=== PATIENT | female | born 1965 | race African-American/Black ===

== ENCOUNTER 2023-08-21 18:19 | Inpatient (IN) | payer OTHER, MEDICAID ==
[~2023-08-21] VITALS: Ht 160 cm; Wt 112.5 kg
[2023-08-21 18:42] LABS: Basophils # (auto) 0.1 10 ^3/uL (0-0.2); Basophils % (auto) 1.9 % (0.0-2.0); Eosinophils # (auto) 0.2 10 ^3/uL (0-0.8); Eosinophils % (auto) 2.8 % (0.0-7.0); Hematocrit 37.8 % (36.0-46.0); Hemoglobin 12.3 g/dL (12.2-16.2); Lymphocytes # (auto) 2.3 10 ^3/uL (0.4-5.4); Mean Corpuscular Hemoglobin 28.8 pg (28.0-32.0); Mean Corpuscular Hgb Conc. 32.5 g/dL (32.0-36.0); Mean Corpuscular Volume 88.4 fL (80.0-100.0); Monocytes # (auto) 0.7 10 ^3/uL (0-1.3); Monocytes % (auto) 10.5 % (0.0-12.0); Neutrophils # (auto) 3.5 10 ^3/uL (1.6-8.6); Neutrophils % (auto) 50.8 % (37.0-80.0); Nucleated Red Blood Cells % 0.2 %; Red Blood Cells 4.28 10^6/uL (4.0-5.20); Red Cell Distribution Width 16.6 % (11.8-14.3); White Blood Cell 6.9 10^3/uL (4.4-10.8)
[2023-08-21 18:58] LABS: Alanine Aminotransferase 16 U/L (7-40); Albumin 4.6 g/dL (3.2-4.8); Alkaline Phosphatase 98 U/L (46-116); Anion Gap 6 (5-15); Aspartate Aminotransferase 17 U/L (13-40); BUN/Creatinine Ratio 12.9 (10.0-20.0); Bilirubin, Total 0.3 mg/dL (0.2-1.0); Blood Urea Nitrogen 13 mg/dL (9-23); Calcium 10.1 mg/dL (8.5-10.1); Carbon Dioxide 26 mmol/L (20-30); Chloride 108 mmol/L (98-107); Glucose 95 mg/dL (74-106); Potassium 4.1 mmol/L (3.5-5.1); Sodium 140 mmol/L (136-145); Total Protein 7.6 g/dL (5.7-8.2)
[2023-08-21] MEDS ORDERED: TEMAZEPAM 15 MG CAP PO PRN (22:15)
[2023-08-21] MEDS: ASPirin 325 MG TAB PO ONE (23:37)
[2023-08-21] MEDS: NITROGLYCERIN 0.4 MG SL TAB SL PRN (23:44)
[2023-08-22 02:35] VITALS: O2SAT 98
[2023-08-22] MEDS: ACETAMINOPHEN 325 MG TAB PO PRN (03:27)
[2023-08-22] MEDS: MORPHINE SULFATE INJ 2 MG/ml SYRG IV PRN (03:46)
[2023-08-22] MEDS: ONDANSETRON HCL 4 MG/2 ML VIAL IV PRN (03:49)
[2023-08-22 05:28] LABS: Anion Gap 8 (5-15); Carbon Dioxide 24 mmol/L (20-30); Chloride 109 mmol/L (98-107); Potassium 3.9 mmol/L (3.5-5.1); Sodium 141 mmol/L (136-145)
[2023-08-22 05:29] LABS: Calcium 9.9 mg/dL (8.7-10.4)
[2023-08-22 05:34] LABS: BUN/Creatinine Ratio 11.3 (10.0-20.0); Blood Urea Nitrogen 11 mg/dL (9-23); Glucose 127 mg/dL (74-106)
[2023-08-22 07:47] VITALS: PULSE 96; RESP 22; O2SAT 97
[2023-08-22] MEDS: FUROSEMIDE 40 MG TAB PO SCH (10:00)
[2023-08-22] MEDS: CARVEDILOL 3.125 MG TAB PO SCH (10:00)
[2023-08-22] MEDS: NIFEdipine ER 30 MG TAB PO SCH (10:00)
[2023-08-22] MEDS: ASPirin 81 mg TAB PO SCH (10:00)
[2023-08-22] MEDS: APIXABAN 5 MG TAB PO SCH (10:24)
[2023-08-22] MEDS: PREGABALIN CAPSULE 75 MG CAP PO SCH (10:24)
[2023-08-22] MEDS: GABAPENTIN 400 MG CAP PO SCH (10:24)
[2023-08-22] MEDS: VENLAFAXINE HCL 37.5MG TABLET PO SCH (10:34)
[2023-08-22] MEDS: ADENOSINE 91 MG in GIVE UN-DILUTED 0 ML IV ONE (11:59)
[2023-08-22 19:00] VITALS: BP 156/84; PULSE 96; RESP 20; TEMP 98.3; O2SAT 99
[2023-08-22 20:00] VITALS: PULSE 87; PULSE 93; RESP 18; O2SAT 97
[2023-08-22 21:00] VITALS: BP 151/87; PULSE 101; RESP 19; TEMP 98.4; O2SAT 100
[2023-08-22] MEDS: ATORVASTATIN 20 MG TAB PO SCH (21:56)
[2023-08-23] VITALS (8 sets, daily range): BP systolic 107–144; BP diastolic 69–93; PULSE 88–103; RESP 16–20; TEMP 97.9–98.6; O2SAT 96–99
[2023-08-23] MEDS ORDERED: DICL1GEL59 TOP (14:12)
[2023-08-23] MEDS ORDERED: OMEP20TA PO (14:12)
[2023-08-23] MEDS ORDERED: TIZA4TAB9 PO (14:12)
[2023-08-23] MEDS ORDERED: NIFE1TAB31 PO (14:12)
[2023-08-23] MEDS ORDERED: METH-1182 PO (14:12)
[2023-08-23] MEDS ORDERED: ERGO500086 PO (14:12)
[2023-08-23] MEDS ORDERED: OXYC325T14 PO (14:12)
[2023-08-23] MEDS ORDERED: ALPR0.5T7 PO (14:12)
[2023-08-23] MEDS ORDERED: FURO40TA4 PO (14:12)
[2023-08-23] MEDS ORDERED: CARV3.1240 PO (14:12)
[2023-08-23] MEDS ORDERED: GABA-339 PO (14:12)
[2023-08-23] MEDS ORDERED: CYCL-839 PO (14:12)
[2023-08-23] MEDS ORDERED: PREG150C PO (14:12)
[2023-08-23] MEDS ORDERED: AMIT-118 PO (14:12)
[2023-08-23] MEDS ORDERED: DOCU-94 PO (14:12)
[2023-08-23] MEDS ORDERED: APIX5TAB PO (14:12)
[2023-08-23] MEDS ORDERED: VENL75CA78 PO (14:12)
[2023-08-23] MEDS ORDERED: ROSU10TA16 PO (14:12)
[2023-08-23] MEDS ORDERED: CEL100T PO (14:12)
[2023-08-24] VITALS (8 sets, daily range): BP systolic 101–139; BP diastolic 68–85; PULSE 87–104; RESP 14–19; TEMP 97.9–98.3; O2SAT 94–100
[2023-08-24] MEDS: HYDROcodone-ACET 5/325MG TAB PO PRN (16:00)
[2023-08-24] MEDS: MORPHINE SULFATE INJ 2 MG/ml SYRG IV PRN (22:55)
[2023-08-25 04:08] VITALS: BP 116/67; PULSE 76; RESP 20; TEMP 98.6; O2SAT 95
[2023-08-25 08:00] VITALS: BP 118/68; PULSE 88; PULSE 93; RESP 18; TEMP 98.7; O2SAT 95
[2023-08-25 08:15] VITALS: PULSE 93; RESP 18; O2SAT 95
[2023-08-25 12:00] VITALS: BP 103/80; PULSE 88; RESP 18; TEMP 98.2; O2SAT 94
[2023-08-25 13:17] VITALS: BP 103/80; PULSE 88; RESP 18; TEMP 98.2; O2SAT 94
== END 2023-08-25 15:30 | disposition hospice, home (50) | DRG 291 ==
LOC: ER 18:19 → TELE 22:25 → TELE-WESTW 08-22 18:56
PROVIDERS: ADMIT Nurse Practitioner; ATTEND Family Medicine
DX: I11.0 Hypertensive heart disease with heart failure (principal); I50.23 Acute on chronic systolic (congestive) heart failure; Z68.41 Body mass index [BMI] 40.0-44.9, adult; I25.110 Atherosclerotic heart disease of native coronary artery with unstable angina pectoris; E66.01 Morbid (severe) obesity due to excess calories; F41.9 Anxiety disorder, unspecified; E78.5 Hyperlipidemia, unspecified; F32.A Depression, unspecified; I48.91 Unspecified atrial fibrillation; I25.2 Old myocardial infarction; Z86.718 Personal history of other venous thrombosis and embolism; Z95.5 Presence of coronary angioplasty implant and graft
CPT/HCPCS: 36415; 71045; 80048; 80053; 83880; 84443; 84484; 85025; 93005; 93017; 93306; G0378; J0153; J2405

== ENCOUNTER 2024-10-09 14:53 | Emergency (ER) | payer OTHER, MEDICAID ==
[~2024-10-09] VITALS: Ht 160 cm; Wt 89.6 kg
[~2024-10-09 14:53] MED LIST: ALPR0.5T7 PO; AMIT-118 PO; APIX5TAB PO; CARV3.1240 PO; CEL100T PO; CYCL-839 PO; DICL1GEL59 TOP; DOCU-94 PO; ERGO500086 PO; FURO40TA4 PO; GABA-339 PO; METH-1182 PO; NIFE1TAB31 PO; OMEP20TA PO; OXYC325T14 PO; ROSU10TA16 PO; TIZA4TAB9 PO; VENL75CA78 PO
--- NOTE | 2024-10-09 15:42 | ED.PDOC ---
History of Present Illness HPI Comments 59-year-old female presents with a chief complaint of back pain. Patient states that she consulted with her PMD, but due to the severity of her pain she was referred to the ER. Patient reports that her pain is localized to her right back side, nonradiating, nonexertional, and rates her pain a 8/10. Patient mentions that she has a nerve stimulator in her right back side due to chronic low back pain concerns. Patient vital signs all within normal limits. Patient denies nausea, vomiting, diarrhea, or fever. Time Seen by MD: 15:36 Primary Care Provider: SANGEETA Reviewed Notes: Nurses Notes, Medications, Allergies Allergies: Coded Allergies: No Known Drug Allergy (Verified Allergy, Unknown, 08/21/23) Home Meds Reported Medications Methocarbamol (Methocarbamol) 750 Mg Tab, 1-2 TAB PO HS 08/23/23 Omeprazole (Gnp Omeprazole) 20 Mg Tab, 1 TAB PO DAILY 08/23/23 Rosuvastatin Calcium (Crestor) 10 Mg Tab, 1 TAB PO DAILY 08/23/23 Furosemide (Furosemide) 40 Mg Tab, 1 TAB PO DAILY 08/23/23 Nifedipine (Nifedipine Er) 30 Mg Tab, 1 TAB PO DAILY 08/23/23 Alprazolam (Alprazolam) 0.5 Mg Tab, 1 TAB PO BID PRN for GENERALIZED ANXIETY DISORDER 08/23/23 Diclofenac Sodium (Topical) (Voltaren Arthritis Pain) 1 % Gel, 1 GRAMS TOP QID PRN for PAIN IN LEFT KNEE 08/23/23 Tizanidine Hydrochloride (Zanaflex) 4 Mg Tab, 1 TAB PO TID PRN for OTHER SPONDYLOSIS 08/23/23 Docusate Sodium (Colace) 100 Mg Cap, 1 CAP PO BID 08/23/23 Carvedilol (Carvedilol) 3.125 Mg Tab, 1 TAB PO BID 08/23/23 Apixaban Base (ELIQUIS) 5 Mg Tab, 1 TAB PO BID 08/23/23 Gabapentin (Gabapentin) 600 Mg Tab, 1 TAB PO TID 08/23/23 Venlafaxine Hcl (Venlafaxine Hcl Er) 75 Mg Cap, 2 CAP PO DAILY 08/23/23 Ergocalciferol (Vitamin D (Ergocalciferol) 50,000 Unit Cap, 1 CAP PO QWEEKLY 08/23/23 Oxycodone W/ Acetaminophen (Apap/Oxycodone) 1 Tab Tab, 1 TAB PO QID PRN for LOW BACK PAIN 08/23/23 Cyclobenzaprine Hcl (Cyclobenzaprine Hcl) 10 Mg Tab, 1 TAB PO TID 08/23/23 Celecoxib (CeleBREX CAPSULE) 100 Mg Cp, 1 CAP PO BID 08/23/23 Amitriptyline HCl (Amitriptyline HCl) 25 Mg Tab, 1 TAB PO HS 08/23/23 Information Source: Patient Mode of Arrival: Ambulatory Severity: Moderate Timing: Days Duration: Since onset Prehospital treatment: None Past Medical History PAST MEDICAL HISTORY: Anxiety, CAD, Depression, HTN, [place] Surgical History (Other): NERVE STIMULATOR PLACEMENT due to chronic low back pain concerns [employer] History: Denies all [employer] Hx Family History Family History: Reviewed,noncontributory to illness Social History Smoker: Non-Smoker Alcohol: Denies ETOH Use Drugs: Denies Drug Use Lives In: Home Constitutional: denies: chills, diaphoresis, fatigue, fever, malaise, sweats, weakness, others EENTM: denies: blurred vision, double vision, ear bleeding, ear discharge, ear drainage, ear pain, ear ringing, eye pain, eye redness, hearing loss, mouth pain, mouth swelling, nasal discharge, nose bleeding, nose congestion, nose pain, photophobia, tearing, throat pain, throat swelling, voice changes, others Respiratory: denies: cough, hemoptysis, orthopnea, SOB at rest, shortness of breath, SOB with excertion, stridor, wheezing, others Cardiovascular: denies: chest pain, dizzy spells, diaphoresis, Dyspnea on exertion, edema, irregular heart beat, left arm pain, lightheadedness, palpita tions, PND, syncope, others Gastrointestinal: denies: abdomen distended, abdominal pain, blood streaked lee wels, constipated, diarrhea, dysphagia, difficulty swallowing, hematemesis, melena, nausea, poor appetite, poor fluid intake, rectal bleeding, rectal pain, vomiting, others Genitourinary: denies: abnormal vagina bleeding, burning, dyspareunia, dysuria, flank pain, frequency, hematuria, incontinence, pain, , vagina discharge, urgency, others Neurological: denies: dizziness, fainting, headache, left sided numbness, left sided weakness, numbness, paresthesia, pre-existing deficit, right sided numbness, right sided weakness, seizure, speech problems, tingling, tremors, weakness, others Musculoskeletal: reports: back pain; denies: gout, joint pain, joint swelling, muscle pain, muscle stiffness, neck pain, others Integumetry: denies: bruises, change in color, change in hair/nails, dryness, laceration, lesions, lumps, rash, wounds, others Allergic/Immunocompromised: denies: Difficulty Healing, Frequent Infections, Hives, Itching, others Hematologic/Lymphatic: denies: anemia, blood clots, easy bleeding, easy bruising, swollen glands, others Endocrine: denies: excessive hunger, excessive sweating, excessive thirst, excessive urination, flushing, intolerance to cold, intolerance to heat, unexplained weight gain, unexplained weight loss, others Psychiatric: denies: anxiety, bipolar disorder, depression, hopeless, panic d isorder, schizophrenia, sleepless, suicidal, others All Other Systems: Reviewed and Negative Physical Exam General Appearance: Moderate Distress (Due to low back pain concerns), Normal HEENT: Normal ENT Inspection, Pharynx Normal, TMs Normal Neck: Full Range of Motion, Non-Tender, Normal, Normal Inspection Respiratory: Chest Non-Tender, Lungs Clear, No Accessory Muscle Use, No Respiratory Distress, Normal Breath Sounds Cardiovascular: No Edema, No JVD, No Murmur, No Gallop, Normal Peripheral Pulses, Regular Rate/Rhythm Breast Exam: Deferred Gastrointestinal: No Organomegaly, Non Tender, No Pulsatile Mass, Normal Bowel Sounds, Soft Genitalia: Deferred Pelvic: Deferred Rectal: Deferred Extremities: No calf tenderness, Normal capillary refill, Normal inspection, Normal range of motion, Non-tender, No pedal edema Musculoskeletal : Location: Right Extremity Location: Back (Patient has a postsurgical scar in her around TB all 11 through L3. Horizontal scar noted over the nerve stimulator. No signs of infection. No definitive tenderness to palpation.) Apperance: Normal Neurologic: Alert, No Motor Deficits, Normal Affect, Normal Mood, No Sensory De ficits Cerebellar Function: NOT DONE Reflexes: NOT DONE Skin: Dry, Normal Color, Warm Lymphatic: No Adenopathy Was a procedure done? Was a procedure done?: No Differential Dx Considerations may include: Chronic back pain, postsurgical evaluation X-Ray, Labs, Meds, VS Vital Signs Date Time Temp Pulse Resp B/P (MAP) Pulse Ox O2 Delivery O2 Flow Rate FiO2 10/09/24 15:42 98.9 100 20 154/99 (117) 100 98.9 Lab Test 10/09/24 15:38 Range/Units POC Glucose 90 70-106 mg/dl X-Ray, Labs, Meds, VS Comment Spent extensive time of having a conversation with the patient about her concerns. Advised that she needs to follow up with the primary care provider and nerve stimulator surgeon for evaluation as well as discussions related to necessity as the patient states that the nerve stimulator has not been helping her with her pain concerns. Patient received a dose of Dilaudid prior to discharge. Patient has Percocet 10s at home that she utilizes for her chronic pain management concerns. Time of 1ST Reevaluation: 16:02 Reevaluation 1ST: Improved Consultation: PCP, Other (Pain management, orthopedic surgeon) Patient Education/Counseling: Diagnosis, Treatment, Need For Follow Up Family Education/Counseling: Diagnosis, Treatment, No Family Present SEPSIS Sepsis Screen Recent Procedure: No On Antibiotic Therapy: No Respiratory Rate >20: No Heart Rate >90: No Temp<36 C (96.8 F) or >38.3 C: No SBP <90 or MAP <65 mmHG: No New Acute Mental Status Change: No Is the patient on CPAP, BIPAP,: No Vital Signs Date Time Temp Pulse Resp B/P (MAP) Pulse Ox O2 Delivery O2 Flow Rate FiO2 10/09/24 15:42 98.9 100 20 154/99 (117) 100 98.9 Departure 1 Departure Time of Disposition: 16:02 Impression: Primary Impression: Chronic low back pain Disposition: 01 HOME / SELF CARE / HOMELESS Condition: Stable Additional Instructions: Advised patient utilize the prescribed pain medication for relief and additionally, patient needs to follow up with primary care provider and surgeon for discussions related to her worsening low back pain concerns and ineffective surgically implemented nerve stimulator. Discharged With: Self, Spouse Critical Care Note Critical Care Time?: No Stability Stability form required: No Heart Score Heart Score: Heart Score Response (Comments) Value History N/A 0 EKG N/A 0 Age N/A 0 Risk Factors N/A 0 Troponin N/A 0 Total 0 I personally scribed for IVAN NORIEGA PAC ([facility]) on 10/09/24 at 15:42. Electronically submitted by Solo Davila ([email or web address]). IVAN NORIEGA PAC Oct 09, 2024 15:42
[2024-10-09] MEDS: HYDROmorphone HCL 2 MG/ML VL/or syr IM ONE (16:19)
[2024-10-09 16:59] VITALS: BP 156/80; PULSE 84; RESP 17; TEMP 98.8; O2SAT 98
== END 2024-10-09 17:01 | disposition home or self-care (01) ==
LOC: ER 14:53
DX: G89.29 Other chronic pain (principal); M54.50 Low back pain, unspecified; I10 Essential (primary) hypertension; F32.A Depression, unspecified; F41.9 Anxiety disorder, unspecified; I25.10 Atherosclerotic heart disease of native coronary artery without angina pectoris; Z79.899 Other long term (current) drug therapy; Z98.890 Other specified postprocedural states
CPT/HCPCS: 82947; 96372; 99283; J1171; 82962